=== PATIENT | female | born 1955 | race American Indian/Alaskan Native ===

== ENCOUNTER 2016-07-07 10:20 | Outpatient (CLI) | payer MEDICARE, OTHER ==
[2016-07-07 11:10] LABS: Hematocrit 38.6 % (30.3-42.9); Hemoglobin 13.4 gm/dl (10.1-14.3); Mean Corpuscular HGB Conc 35 % (30-34); Mean Corpuscular Hemoglobin 30 pg (28-32); Mean Corpuscular Volume 85 fl (79-97); Platelet Count 306 K/mm3 (140-440); Red Blood Count 4.54 M/mm3 (3.65-5.03); Red Cell Distribution Width 16.8 % (13.2-15.2); White Blood Count 6.8 K/mm3 (4.5-11.0)
[2016-07-07 11:48] LABS: Erythrocyte Sedimentation Rate 1 mm/Hr (0-20)
[2016-07-07 11:50] LABS: Blood Urea Nitrogen 11 mg/dL (7-17)
--- NOTE | 2016-07-08 15:43 | Cat Scan Report ---
CT NECK WITH AND WITHOUT CONTRAST INDICATION: Pain in throat. COMPARISON: None similar. FINDINGS: Neck CT performed following oral and IV contrast demonstrates left thyroidectomy with subtle, 1.3 cm hypodense right thyroid lobe lesion, axial image 155, series 4. Additional 1-2 tiny right thyroid lobe hypodensities measuring approximately 2 mm may also be present. Patent aortic arch and major neck vessels. Pharynx, hypopharynx and larynx appear within normal limits. No size significant adenopathy. Normal imaged salivary glands, eye globes and intracranial appearance. Clear paranasal sinuses and mastoid air cells. Few radiopaque dental fillings and missing teeth. Mild spinal degenerative changes. Approximately 5 mm left lung calcified granuloma posteriorly and left hilar calcifications measuring up to 1.4 cm. CONCLUSION: No acute CT abnormality with few incidental findings, as above in this patient with left thyroidectomy, as described. Please correlate. Thank you for the opportunity to participate in this patient's care.
[2016-07-09 15:20] LABS: Myeloperoxidase Antibody <1.0 AI (<1.0)
== END 2016-07-07 10:21 | disposition home or self-care (01) ==
LOC: CT 10:20
PROVIDERS: ATTEND Otolaryngology
DX: R07.0 Pain in throat (principal); M47.819 Spondylosis without myelopathy or radiculopathy, site unspecified; J84.10 Pulmonary fibrosis, unspecified; J98.4 Other disorders of lung; Z90.89 Acquired absence of other organs
CPT/HCPCS: 36415; 70492; 82565; 84436; 84443; 84480; 84520; 85027; 85652; 86021; 86038; Q9967

== ENCOUNTER 2016-09-14 20:39 | Emergency (ER) | payer BC, OTHER ==
[2016-09-14 23:23] LABS: Basophils % (Auto) 0.8 % (0.0-1.8); Eosinophils % (Auto) 2.4 % (0.0-4.3); Hematocrit 40.2 % (30.3-42.9); Mean Corpuscular HGB Conc 35 % (30-34); Mean Corpuscular Hemoglobin 30 pg (28-32); Mean Corpuscular Volume 86 fl (79-97); Platelet Count 288 K/mm3 (140-440); Red Cell Distribution Width 15.8 % (13.2-15.2); White Blood Count 8.2 K/mm3 (4.5-11.0)
[2016-09-14 23:29] LABS: Anion Gap 17 mmol/L; Blood Urea Nitrogen 14 mg/dL (7-17); Carbon Dioxide 25 mmol/L (22-30); Chloride 102.3 mmol/L (98-107); Glucose 76 mg/dL (65-100); Potassium 3.6 mmol/L (3.6-5.0); Sodium 141 mmol/L (137-145)
[2016-09-15 01:17] VITALS: BP 151/87
[2016-09-15 01:56] LABS: Bilirubin,Urine NEG (Negative); Blood,Urine NEG (Negative); Ketones,Urine NEG (Negative); Leukocyte Esterase,Urine TR (Negative); Nitrite,Urine NEG (Negative); Protein,Urine <15 mg/dL mg/dL (Negative); Urobilinogen,Urine < 2.0 mg/dL (<2.0)
== END 2016-09-15 03:00 ==
LOC: ED 20:39
DX: M54.2 Cervicalgia (principal); R22.42 Localized swelling, mass and lump, left lower limb; I10 Essential (primary) hypertension; J45.909 Unspecified asthma, uncomplicated; F41.9 Anxiety disorder, unspecified; M19.90 Unspecified osteoarthritis, unspecified site; Z53.21 Procedure and treatment not carried out due to patient leaving prior to being seen by health care provider
CPT/HCPCS: 36415; 80048; 81001; 84484; 85025; 93005; 93010

== ENCOUNTER 2017-02-03 09:09 | Outpatient (CLI) | payer BC, OTHER ==
--- NOTE | 2017-02-04 17:17 | Vascular Lab Report ---
RENAL ARTERY DUPLEX EXAM: REASON FOR EXAM: Proteinuria. NOTE: Visualization is technically adequate. COMMENTS ON THE AORTA: The aorta is patent. Normal flow velocities are observed. No aneurysmal dilatation is noted. Mild atherosclerotic change is identified. The celiac artery is patent with normal flow velocity. The superior mesenteric artery is patent with normal flow velocity. COMMENTS ON THE RIGHT KIDNEY: The kidney measures 10.9 centimeters in greatest dimension. No obvious parenchymal abnormalities are noted. The renal artery is patent. Maximum systolic velocity is 151 cm/sec. This finding is consistent with less than 60% diameter reduction. Renal aortic index is 1.99. This finding is consistent with less than 60% diameter reduction. Overall findings are consistent with less than 60% diameter reduction in the renal artery. COMMENTS ON THE LEFT KIDNEY: The kidney measures 10.3 centimeters in greatest dimension. No obvious parenchymal abnormalities are noted. The renal artery is patent. Maximum systolic velocity is 122 cm/sec. This finding is consistent with less than 60% diameter reduction. Renal aortic index is 1.61. This finding is consistent with less than 60% diameter reduction. Overall findings are consistent with less than 60% diameter reduction in the renal artery. IMPRESSION: RIGHT KIDNEY: Less than 60% diameter reduction in the renal artery. LEFT KIDNEY: Less than 60% diameter reduction in the renal artery.
== END 2017-02-03 09:10 | disposition home or self-care (01) ==
LOC: VAS 09:09
PROVIDERS: ATTEND Internal Medicine Nephrology
DX: I10 Essential (primary) hypertension (principal); R80.9 Proteinuria, unspecified; J45.909 Unspecified asthma, uncomplicated; F32.9 Major depressive disorder, single episode, unspecified; F41.9 Anxiety disorder, unspecified
CPT/HCPCS: 93975

== ENCOUNTER 2017-06-15 13:10 | Outpatient (CLI) | payer OTHER, MEDICARE ==
--- NOTE | 2017-06-15 14:50 | XRay Report ---
LEFT HIP, 2 views: History: Pain. Mild osteoarthritic changes are identified at the left hip. No evidence for fracture, dislocation or osteonecrosis. The pelvis is intact. There are 3 calcified uterine fibroids in the pelvis with the largest measuring 5.4 cm in diameter. IMPRESSION: Mild osteoarthritis. No acute process. Uterine fibroid disease.
== END 2017-06-15 13:11 | disposition home or self-care (01) ==
LOC: XRAY 13:10
PROVIDERS: ATTEND Emergency Medicine
DX: M16.12 Unilateral primary osteoarthritis, left hip (principal); D25.9 Leiomyoma of uterus, unspecified

== ENCOUNTER 2019-12-25 15:03 | Emergency (ER) | payer BC, OTHER | END 2019-12-25 17:19 | disposition left against medical advice (07) | LOC: ED 15:03 | DX: M79.602 Pain in left arm (principal); R07.89 Other chest pain; R00.2 Palpitations; Z53.21 Procedure and treatment not carried out due to patient leaving prior to being seen by health care provider ==